=== PATIENT | male | born 1955 | race Two or more races ===

== ENCOUNTER 2024-07-09 12:24 | Emergency (ER) | payer MEDICAID ==
[~2024-07-09] VITALS: Ht 170.2 cm; Wt 67.6 kg
[2024-07-09] MEDS ORDERED: IBUPROFEN 600 MG TABLET ONE (12:53)
[2024-07-09] MEDS ORDERED: BENZONATATE 100 MG CAPSULE PO ONE (12:53)
[2024-07-09] MEDS ORDERED: PSEUDOEPHEDRINE HCL 30 MG TABLET ONE (12:53)
[2024-07-09] MEDS: IBUPROFEN 600 MG TABLET PO ONE (12:55)
[2024-07-09] MEDS: PSEUDOEPHEDRINE HCL 30 MG TABLET PO ONE (12:56)
[2024-07-09] MEDS: BENZONATATE 100 MG CAPSULE PO PRN (12:56)
[2024-07-09] MEDS ORDERED: BENZ-13 PO (13:58)
[2024-07-09] MEDS ORDERED: ALBU18HF2 INH (13:58)
[2024-07-09 14:30] VITALS: BP 120/87; TEMP 98.9; O2SAT 97
== END 2024-07-09 14:48 | disposition home or self-care (01) ==
LOC: ER 12:31
DX: R05.9 Cough, unspecified (principal); Z20.822 Contact with and (suspected) exposure to COVID-19
CPT/HCPCS: 71045-TC